=== PATIENT | male | born 1970 | race Caucasian/White ===

== ENCOUNTER 2022-09-27 06:01 | Observation (INO) ==
--- NOTE | 2022-09-06 09:09 | PAT Medication Instructions ---
Medication Instructions Date of Service September 06, 2022 Home Medications divalproex 500 mg tablet,extended release 24 hr 500 mg PO UD gabapentin 100 mg capsule 200 mg PO HS mirtazapine 30 mg tablet 30 mg PO HS prazosin 2 mg capsule 4 mg PO HS venlafaxine 150 mg capsule,extended release 24 hr 150 mg PO QAM venlafaxine 75 mg tablet 75 mg PO QAM Continue as directed divalproex 500 mg tablet,extended release 24 hr 500 mg PO UD ASK your prescriber and surgeon mirtazapine 30 mg tablet 30 mg PO HS Take morning of surgery With a small sip of water, OTHERWISE NOTHING TO EAT OR DRINK AFTER MIDNIGHT: venlafaxine 150 mg capsule,extended release 24 hr 150 mg PO QAM venlafaxine 75 mg tablet 75 mg PO QAM Take evening before surgery gabapentin 100 mg capsule 200 mg PO HS prazosin 2 mg capsule 4 mg PO HS Other Notes If you have any questions please call us at [phone] or [phone] or [phone] or [phone]
--- NOTE | 2022-09-13 10:44 | Anesthesiology Consultation ---
Date of Service September 13, 2022 Assessment & Plan (1) Encounter for pre-operative examination: - awaiting upcoming pt reported PCP clearance 09/19/22. Chart Review Chart Review: Pending: Refer to Additional Notes / Consult section and Patient seen in Pre Admission Testing Teaching & Discussion Pre-Anesthesia Teaching/Discussion Notes: Instructed NPO after midnight before surgery, except medications with 15 cc of water. Medication instructions provided according to the PAT guidelines. History Surgery Operation Date: 09/27/22 07:45 Proposed Procedures p C5-C6 Anterior Cervical Discectomy and Fusion, Spinal Cord Monitoring - Trae Mccann DO Height/Weight Height: 5 ft 10 in Weight: 103.3 kg Allergies Allergy/AdvReac Type Severity Reaction Status Date / Time Penicillins Allergy Unknown Verified 09/04/22 16:33 Medications Home Medications Medication Instructions Recorded Confirmed Last Taken divalproex 500 mg tablet,extended 500 mg PO UD 09/04/22 09/04/22 Unknown release 24 hr gabapentin 100 mg capsule 200 mg PO HS 09/04/22 09/04/22 Unknown mirtazapine 30 mg tablet 30 mg PO HS 09/04/22 09/04/22 Unknown prazosin 2 mg capsule 4 mg PO HS 09/04/22 09/04/22 Unknown venlafaxine 150 mg 150 mg PO QAM 09/04/22 09/04/22 Unknown capsule,extended release 24 hr venlafaxine 75 mg tablet 75 mg PO QAM 09/04/22 09/04/22 Unknown Past Medical History Medical History Acid reflux diet controlled History of migraine HLD (hyperlipidemia) PTSD (post-traumatic stress disorder) Spinal stenosis Patient denies h/o stroke, seizures, heart attack, heart failure, DM, HTN, blood clots or blood transfusions. Exercise / Class Metabolic Activity II 4-5 Yardwork/Stairs/Walk up hill (mild SOB with 1 FOS, ongoing x 6 months denies change or worsening; denies chest discomfort) Past Family History Family History Other No family history of adverse response to anesthesia Past Surgical History Surgical History History of colonoscopy History of esophagogastroduodenoscopy (EGD) History of left knee surgery History of tonsillectomy History of wisdom tooth extraction Past Anesthesia History No Hx of Anesthesia Complications and No Family Hx of Anesthesia Complications History of PONV No Hx of PONV and No Hx of Motion Sickness STOP BANG Total 4 Social History Smoking Status: Current every day smoker (-advised, pt inquired about vaping- aware to not vape from midnight before surgery on) tobacco type: cigarettes Smoking cigarettes per day: 10 per day Do You Dip or Chew Tobacco: No Hx Alcohol Use: No Hx Substance Use: No substance use type: does not use Review of Systems Snoring, denies witnessed apneas. Patient denies chest pain, fever, chills, cough, wheezing, or palpitations. Physical Exam Vital Signs Vitals BP 124/85 P 67 TEMP 98.2 SP02 96% on RA RESP 18 Physical Full cervical extension range of motion without pain TMD 3.5 finger breadths Mallampati Score 3 Dentition: intact, denies chipped or loose teeth, caps/crowns, implants or bridges Lungs: normal respiratory effort. Good air movement, clear throughout to auscultation, no adventitious breath sounds Cardiac: regular rate and rhythm, no murmurs noted Carotid arteries: negative bruit bilat Lab Results Anesthesia Preop Results Results Anesthesia Widget: WBC 7.34 K/ul (4.8-10.8) 09/13/22 Hgb 15.6 g/dl (14.0-18.0) 09/13/22 Hct 44.1 % (42.0-52.0) 09/13/22 Plt 306 K/uL (130-400) 09/13/22 Na 136 mmol/L (136-145) 09/13/22 K 4.2 mmol/L (3.5-5.1) 09/13/22 Cl 107 mmol/L (98-107) 09/13/22 CO2 22 mmol/L (21-32) 09/13/22 BUN 16 mg/dl (6-23) 09/13/22 Creat 1.06 mg/dl (0.6-1.4) 09/13/22 Glucose Level 105 mg/dl (70-99(Fasting)) H 09/13/22 PT 10.0 Seconds (9.0-12.0) 09/13/22 PTT 29.3 Seconds (21.0-31.0) 09/13/22 INR 0.9 (0.9-1.1) 09/13/22 Urine Color Yellow 09/13/22 Urine Appearance Clear (Clear) 09/13/22 Urine pH 5.0 (4.5-7.5) 09/13/22 Urine Specific [place] 1.020 (1.000-1.030) 09/13/22 Urine Protein Negative (Negative) 09/13/22 Urine Glucose (UA) Negative (Negative) 09/13/22 Urine Ketones Negative (Negative) 09/13/22 Urine Blood Negative (Negative) 09/13/22 Urine Nitrite Negative (Negative) 09/13/22 Urine Bilirubin Negative (Negative) 09/13/22 Urine Urobilinogen Negative (Negative) 09/13/22 Urine Leukocyte Esterase Negative (Negative) 09/13/22 Blood Type A Positive 09/13/22 Antibody Screen NEGATIVE 09/13/22 Testing Electrocardiogram Date: 09/13/22 Sinus bradycardia, rate 54 bpm Chest X-Ray Date: 09/13/22 No acute chest disease COVID-19 Risk Screen Screening Information COVID-19 Screen Date: 09/13/22 Exposure 21 Days Family/Household +COVID Last 21 Days: No Exposure 10 Days Any COVID Exposure Last 10 Days: No Symptoms Last 10 Days Experienced COVID Sx Last 10 Days: No + COVID 0-90 Days COVID + in Last 0-90 Days: No
[~2022-09-27 06:01] MED LIST: ACETAMINOPHEN 500 MG TAB PO SCH; CLINDAMYCIN/D5W 900 MG/50 ML BAG IV SCH; CeleBREX 200 MG CAP PO SCH; GABAPENTIN 900 MG DOSE PO SCH; LR 15ML/HR IV SCH; LR 60ML/HR IV SCH
[2022-09-27] MEDS ORDERED: LABETALOL HCL IV 5 MG/ML 20ML IV PRN (07:15)
[2022-09-27] MEDS ORDERED: ATROPINE SULFATE 0.1 MG/ML 10ML SYR IV PRN (07:15)
[2022-09-27] MEDS ORDERED: PROMETHAZINE HCL 12.5 MG in SODIUM CHLORIDE 0.9% 50 ML IV PRN ×2 (07:15→10:45)
[2022-09-27] MEDS ORDERED: fentaNYL citrate PF 100 MCG/2 ML VIAL ONE ×2 (07:17→08:23)
[2022-09-27] MEDS ORDERED: MIDAZOLAM HCL 1 MG/ML 2ML VIAL ONE (07:17)
[2022-09-27] MEDS ORDERED: LIDOCAINE 2% 2 ML VIAL/AMP(20MG/ML) INFIL ONE (07:40)
[2022-09-27] MEDS ORDERED: PROPOFOL IV EMULSION 10 MG/ML 20 ML VIAL IV ONE (07:40)
[2022-09-27] MEDS ORDERED: ONDANSETRON INJ 2 MG/ML 2 ML VIAL ONE (07:40)
[2022-09-27] MEDS ORDERED: DEXAMETHASONE SOD INJ 4 MG/ML VIAL ONE (07:40)
--- NOTE | 2022-09-27 07:43 | History & Physical Bridge Note ---
Date of Service September 27, 2022 History & Physical Bridge Note I have examined the patient, reviewed the History & Physical and in the interval since the performance of the History & Physical I have noted the following changes of clinical significance: no changes noted
--- NOTE | 2022-09-27 07:44 | History & Physical Report ---
Date of Service September 27, 2022 Assessment & Plan (1) Cervical stenosis of spinal canal: Plan: C5-C6 anterior cervical discectomy and fusion History of Present Illness Chief Complaint: Neck and arm pain Primary Care Provider: Karson Chan DO This is a 52-year-old male with persistent chronic persistent neck and arm pain and failing course of nonoperative care is here for surgical intervention. Allergies Allergy/AdvReac Type Severity Reaction Status Date / Time Penicillins Allergy Unknown- Verified 09/27/22 06:30 as child Home Medications Medication Instructions Recorded Confirmed Type divalproex 500 mg tablet,extended 500 mg PO UD 09/04/22 09/27/22 History release 24 hr (Depakote ER) gabapentin 100 mg capsule 200 mg PO HS 09/04/22 09/27/22 History mirtazapine 30 mg tablet (Remeron) 30 mg PO HS 09/04/22 09/27/22 History prazosin 2 mg capsule 4 mg PO HS 09/04/22 09/27/22 History venlafaxine 150 mg 150 mg PO QAM 09/04/22 09/27/22 History capsule,extended release 24 hr venlafaxine 75 mg tablet 75 mg PO QAM 09/04/22 09/27/22 History Past Med/Surg History Medical History (Updated 09/27/22 @ 07:44 by Trae Mccann DO) Acid reflux diet controlled History of migraine HLD (hyperlipidemia) Nerve damage Neck, shoulders and arms- bilateral- From EMG in [place] PTSD (post-traumatic stress disorder) Spinal stenosis Surgical History History of colonoscopy History of esophagogastroduodenoscopy (EGD) History of left knee surgery History of tonsillectomy History of wisdom tooth extraction Family History Other No family history of adverse response to anesthesia Social History Smoking Status: Current every day smoker (-advised, pt inquired about vaping- aware to not vape from midnight before surgery on) Cigarettes Per Day: 10 per day; Second Hand Exposure: Yes ( smokes); Do You Dip or Chew Tobacco: No; Tobacco Cessation Education Requested by Patient: No Hx Alcohol Use: No Hx Substance Use: No Preferred Language: [place] Communication Ability: Effective Supervisor Wet End Required: No Beliefs That Will Affect Care: None Current Living Situation: Family Feels Safe at Home: Yes Safety Concerns: Feels Safe At This Time Assistive Devices: Glasses Assistive Devices Comment: glasses for reading Physical Exam Physical Exam: Patient is alert and oriented Heart regular rhythm Lungs clear Results & Data Results & Data Vital Signs (Past 12 Hours) Vital Signs Temp Pulse Resp BP Pulse Ox O2 Del Method 09/27/22 06:35 36.6 C 77 20 142/90 H 97 Room Air
[2022-09-27] MEDS ORDERED: ROCURONIUM BROMIDE 10 MG/ML 5 ML VIAL IV ONE ×2 (08:26→08:27)
[2022-09-27] MEDS ORDERED: FLOSEAL HEMOSTATIC MATRIX 10ML TOP ONE (08:33)
[2022-09-27] MEDS ORDERED: SUGAMMADEX SODIUM 200 MG/2 ML VIAL IV ONE (08:49)
[2022-09-27] MEDS ORDERED: PHENYLEPHRINE HCL 10 MG/ML VIAL ONE (08:51)
[2022-09-27] MEDS ORDERED: ePHEDrine sulfate 50 MG/ML SYR ONE (08:51)
--- NOTE | 2022-09-27 08:59 | Operative Report ---
Post Operative Report Pre & Post Diagnosis Operation Date: 09/27/22 07:45 Pre-Op Diagnosis: Cervical spinal stenosis with radiculopathy Post-Op Diagnosis: Same I identified the patient and participated in the time-out.: Yes Procedure Operation Date: 09/27/22 07:45 Actual Procedures 1. Anterior cervical discectomy with bilateral foraminotomies C5-C6. #2 anterior cervical arthrodesis C5-C6. #3 placement of Spira 8 mm cage with I factor C5-C6. #4 placement of K2 M plate and screws across C5-C6. Surgeon Trae Mccann, Vp [employer] Leesa Haynes Estimated Blood Loss 20 Findings Consistent with Post-Op Diagnosis Specimens none Indications This is a 52-year-old male presents above-mentioned diagnosis after failing course of nonoperative care is here for surgical intervention. Description of Procedure Patient was met with identified informed consent obtained. Patient was then taken to the operative suite underwent a patient placed in spine position jacks table with head Rock head order. All bony promises well-padded eyes inspected to ensure no external pressure placed upon them. This point the anterior cervical spine was prepped and draped in a sterile fashion. With assistance of fluoroscopy identified the anterior cervical spine at C5-C6 and a transverse incision was placed along the right anterior aspect of the cervical spine overlying this region. Blunt dissection with assistance of bipolar electrocautery to form down to and exposing the anterior cervical spine C5-C6. A complete discectomy was then performed out to the uncovertebral joints bilaterally. [place] distracting pins utilized to assist in visualization. Removed all posterior and the fibers longitudinal ligament bilateral foraminotomies performed. Endplates burred to subcortical bleeding bone and a 8 mm Spira cage with I factor tapped in position. Distracting apparatus was kayce mercedes and a K2 M plate and screws applied with the assistance of fluoroscopy. The incision was then copiously irrigated explored to ensure no tenderness or surrounding structures or remaining bleeding. 10 round TERRY drain inserted. The incision was then closed with 2 Vicryl in a fashion of 4 Monocryl for final skin closure. Steri-Strips sterile dressing placed. Patient waken taken to PACU in stable condition. Please note spinal cord monitoring visualized at the procedure no changes noted. Lastly Leesa Haynes was present at the entire surgeon while the patient positioning complex portion of the surgery and final skin closure. I attest to the content of the Intraoperative Record and any orders documented therein. Any exceptions are noted below.
--- NOTE | 2022-09-27 09:29 | Fluoroscopy Report ---
FL cervical 2-3V CLINICAL HISTORY: ACDF C5-C6 COMPARISON STUDY: None FLUOROSCOPY TIME: 6.1 seconds FLUOROSCOPY IMAGES: 2 EXPOSURE DOSE: 0.66 mGy FINDINGS: Endotracheal tube is present. Anterior plate and screw fusion hardware is noted at what zenaida ears to be the C5-C6 interspace. The visualized hardware appears intact. A radiopaque surgical sponge projects over the anterior operative bed. A surgical drainage catheter is in place. Note that the im ages were submitted following completion of the surgery. IMPRESSION: Fluoroscopic assistance as above. ACT 112: Negative or not required by law. Electronically signed by: Yusuf Rivers M.D. 09/27/2022 9:28 AM
[2022-09-27] MEDS: HYDROmorphone INJ 1 MG/ML SYRINGE IV PRN ×2 (10:07→10:12)
--- NOTE | 2022-09-27 10:21 | Anesthesiology Progress Note ---
Date of Service September 27, 2022 Anesthesia Post Procedure Vital Signs Vital Signs: Temp Pulse Pulse Resp BP Pulse Ox O2 Del Method 09/27/22 10:05 73 18 148/99 H 97 Nasal Cannula 09/27/22 09:55 77 20 143/82 H 95 Nasal Cannula 09/27/22 09:35 88 10 L 133/90 99 Oxymask 09/27/22 09:45 36.4 C L 70 11 L 134/89 96 Nasal Cannula 09/27/22 09:25 71 13 131/90 97 Oxymask 09/27/22 09:15 36.0 C L 74 16 131/81 99 Oxymask 09/27/22 06:35 36.6 C 77 20 142/90 H 97 Room Air O2 Flow Rate 09/27/22 10:05 3 09/27/22 09:55 3 09/27/22 09:35 5 09/27/22 09:45 3 09/27/22 09:25 7 09/27/22 09:15 9 09/27/22 06:35 Pain Intensity Neck: Pain Intensity: 0 Right Shoulder: Pain Intensity: 5 Transfer of Care Handoff Completed per policy Notes Mental Status: alert / awake / arousable Patient Amnestic to Procedure: Yes Nausea / Vomiting: adequately controlled Pain: adequately controlled Airway Patency, RR, SpO2: stable & adequate BP & HR: stable & adequate Hydration State: stable & adequate Anesthetic Complications: no major complications apparent
[2022-09-27] MEDS ORDERED: RACEPINEPHRINE 2.25% NEBU SOLN 0.5 ML VIAL INH PRN (10:45)
[2022-09-27] MEDS ORDERED: ACETAMINOPHEN 1,000 MG/100 ML VIAL IV PRN (10:45)
[2022-09-27] MEDS ORDERED: FAMOTIDINE 20 MG TAB PO PRN (10:45)
[2022-09-27] MEDS ORDERED: diphenhydrAMINE Capsule 25 MG CAP PO PRN (10:45)
[2022-09-27] MEDS ORDERED: NALOXONE HCL 0.4 MG/1 ML VIAL/CARP IV PRN (10:45)
[2022-09-27] MEDS ORDERED: DO NOT ADMINISTER PNEUMOCOCCAL VACCINE PRN (10:45)
[2022-09-27] MEDS ORDERED: ONDANSETRON INJ 2 MG/ML 2 ML VIAL IV PRN (10:45)
[2022-09-27] MEDS ORDERED: METOCLOPRAMIDE HCL INJ 5 MG/ML 2 ML VIAL IV PRN (10:45)
[2022-09-27] MEDS ORDERED: HYDROmorphone INJ 0.5 MG/0.5 ML SYR IV PRN (10:45)
[2022-09-27] MEDS ORDERED: dexAMETHasone 8 MG in SYRINGE 0 ML IV PRN (10:45)
[2022-09-27] MEDS ORDERED: ONDANSETRON 4 MG OD TAB PO PRN (10:45)
[2022-09-27] MEDS ORDERED: bisacodyL 10 MG SUPP PR PRN (10:45)
[2022-09-27] MEDS ORDERED: ALUMINUM/MAGNESIUM SUSP 30 ML UDC PO PRN (10:45)
[2022-09-27] MEDS ORDERED: LORazepam 0.5 MG TAB PO PRN (10:45)
[2022-09-27] MEDS ORDERED: MAGNESIUM HYDROXIDE SUSP 30 ML UDC PO PRN (10:45)
[2022-09-27] MEDS ORDERED: hydrOXYzine HCl 25 MG TAB PO PRN (10:45)
[2022-09-27] MEDS ORDERED: DO NOT ADMINISTER FLU VACCINE PRN (10:45)
[2022-09-27] MEDS ORDERED: HYDROmorphone INJ 1 MG/ML SYRINGE IV PRN (10:45)
[2022-09-27] MEDS ORDERED: LORazepam 2 MG/1 ML VIAL IV PRN (10:45)
[2022-09-27] MEDS ORDERED: SOD PHOSPHATE/SOD BIPHOSPHATE ENEMA 132 ML BTL PR PRN (10:45)
[2022-09-27] MEDS ORDERED: ACETAMINOPHEN 500 MG TAB PO PRN (10:45)
[2022-09-27] MEDS ORDERED: traMADol HCL 50 MG TABLET PO PRN (10:45)
[2022-09-27] MEDS: LACTATED RINGER'S 1,000 ML IV SCH ×2 (11:16→20:08)
--- NOTE | 2022-09-27 11:23 | Consultation ---
Date of Consultation September 27, 2022 Assessment & Plan (1) Cervical stenosis of spinal canal: (2) PTSD (post-traumatic stress disorder): (3) HTN (hypertension): (4) Tobacco use: Plan 52-year-old male that presented to the [facility] today for an elective ACDF C5-C6 under the care of Dr. Mccann after failed conservative management of persistent neck and arm pain. Additional past medical history includes: HTN (Takes Prazosin), PTSD (takes Venlafaxine and Depakote), and tobacco use. Post- operatively, patient doing well with C-Collar intact; TERRY drain x1 with scant daly red bloody output. His baseline Hgb from 09/13/22 was 15.6; no signs of overt bleeding; will trend this in the AM. Patient able to answer all questions appropriately. SpO2 95% on RA and denies SOB, chest pain, dizziness, headaches, abdominal pain or tenderness, N/V/D. He does have pain in his right arm but denies neuropathy and is able to move all fingers and upper and lower extremities. Cervical stenosis of spinal canal: POD# 0 s/p ACDF C5-C6 with Dr. Mccann. EBL 20mL; TERRY drain x1 with scant daly red blood Monitor H&H, pre op Hgb from 09/13 15.6; trend in AM Per ortho for pain control, wound care, anticoagulation and activities. Continue incentive spirometry PT/OT when appropriate PTSD: Takes Venlafaxine and Depakote; continue Has been well controlled for a few years with medications; no visual or auditory hallucinations recently HTN: Takes Prazosin; continue Normotensive postop Tobacco Use: Smokes approximately 10 cigarettes/day Offered nicotine patch; declined Disposition: PCP: Dr. Chan Code Status: Full Code VTE Prophylaxis: Per admitting team I spent a total of 60 minutes coordinating, documenting, and providing care for this patient excluding time spent in the performance of separately billed services. All of the aforementioned completed while collaborating with the assigned attending physician for a full treatment plan. Please see their addendum for further details. Supervising Physician Co-Signing Physician Notes Attending addendum: The patient was seen and examined in medical floor He is a status post ACDF C5-C6 on 09/27/2022 He has some pain involving the right upper extremity and localized tenderness in the neck but no other symptoms On examination Lying in bed comfortably Remains hemodynamically stable Chestclear to auscultate bilaterally HeartS1-S2, regular Abdomenbenign Extremitiesno edema His labs, imaging studies and EKG reviewed Status post ACDF C5-C6 for cervical stenosis Remains medically stable Agree with assessment plan as outlined above by Varsha Garnett History of Present Illness Requesting Physician: Dr. Mccann Reason for Consultation: Postoperative medical management Attending Physician: Trae Mccann, DO History of Present Illness Mr. Thomas is a 52-year-old male that presented to the [facility] today for an elective ACDF C5-C6 under the care of Dr. Mccann after failed conservative management of persistent neck and arm pain. Post-operatively, patient doing well with C-Collar intact; TERRY drain x1 with scant daly red bloody output. His baseline Hgb from 09/13/22 was 15.6; no signs of overt bleeding; will trend this in the AM. Patient able to answer all questions appropriately. SpO2 95% on RA and denies SOB, chest pain, dizziness, headaches, abdominal pain or tenderness, N/V/D. He does have pain in his right arm but denies neuropathy and is able to move all fingers and upper and lower extremities. Pt has not had flatulence yet; is ordered stool softeners as well while taking opioids for PRN pain control. Additional past medical history includes: HTN (Takes Prazosin), PTSD (takes Velafaxine and Depakote), and tobacco use. Pt described being in [place] and having nightmares with visual and auditory hallucinations in his past related to his experiences. [facility] and claims his symptoms are well controlled with Venlafaxine and Depakote. He takes Remeron for sleep aid as well related to his PTSD. Patient smokes approximately 10 cigarettes per day; no alcohol or recreational drug use; including marijuana. [facility] hospitalist service was consulted for postoperative medical management. Please see A/P for further details. We are available 25/09 via [place] text for additional assistance or management. Allergies Allergy/AdvReac Type Severity Reaction Status Date / Time Penicillins Allergy Unknown- Verified 09/27/22 06:30 as child Home Medications Medication Instructions Recorded Confirmed Type divalproex 500 mg tablet,extended 500 mg PO UD 09/04/22 09/27/22 History release 24 hr (Depakote ER) gabapentin 100 mg capsule 200 mg PO HS 09/04/22 09/27/22 History mirtazapine 30 mg tablet (Remeron) 30 mg PO HS 09/04/22 09/27/22 History prazosin 2 mg capsule 4 mg PO HS 09/04/22 09/27/22 History venlafaxine 150 mg 150 mg PO QAM 09/04/22 09/27/22 History capsule,extended release 24 hr venlafaxine 75 mg tablet 75 mg PO QAM 09/04/22 09/27/22 History oxycodone 5 mg tablet 5 mg PO Q6H PRN pain #30 tabs 09/27/22 Rx tramadol 50 mg tablet 50 mg PO Q6H PRN pain, moderate 09/27/22 Rx #30 tabs Patient History Medical History Acid reflux diet controlled History of migraine HLD (hyperlipidemia) HTN (hypertension) Nerve damage Neck, shoulders and arms- bilateral- From EMG in [place] PTSD (post-traumatic stress disorder) Spinal stenosis Tobacco use Surgical History History of colonoscopy History of esophagogastroduodenoscopy (EGD) History of left knee surgery History of tonsillectomy History of wisdom tooth extraction Family History Other No family history of adverse response to anesthesia Social History Smoking Status: Current every day smoker (-advised, pt inquired about vaping- aware to not vape from midnight before surgery on) Cigarettes Per Day: 10 per day; Second Hand Exposure: Yes ( smokes); Do You Dip or Chew Tobacco: No; Tobacco Cessation Education Requested by Patient: No Hx Alcohol Use: No Hx Substance Use: No Preferred Language: Ch[place] Communication Ability: Effective Pelletizer Required: No Beliefs That Will Affect Care: None Current Living Situation: Family Feels Safe at Home: Yes Safety Concerns: Feels Safe At This Time Assistive Devices: Glasses Assistive Devices Comment: glasses for reading Review of Systems Review of Systems: Neuro: (-) Falls, trauma, slurred speech HEENT: (-) HEATH, dizziness, dysphagia, visual or auditory changes (+) pain in right arm CV: (-) CP, palpitations, swelling Resp: (-) SOB GI: (-) appetite changes, N/V/D, bowel changes : (-) urinary changes Skin: (-) rashes Psych: (-) anxiety, depression Physical Exam Physical Exam: Neuro: AAOx4, PERRLA, no aphagia, memory changes, CNII-XII grossly intact HEENT: head normocephalic, moist mucus membranes CV: S1/S2, (-) M/G/R, (-) edema, cap refill < 3 seconds. Anterior TERRY drain x1 with scant daly red bloody drainage Resp: Lungs CTA in all [place]. On RA GI: Abdomen S/NT/ND, Ax4 bowel sounds, (-) CVA tenderness Musculoskeletal: 5/5 B/L UE strength, 5/5 B/L LE strength. No gait disturbance Skin: (-) rashes , (-) erythema. Psych: euthymic mood Results & Data Vital Signs (Past 12 Hours) Vital Signs Temp Pulse Pulse Resp BP Pulse Ox Pulse Ox 09/27/22 10:40 09/27/22 10:40 36.7 C 74 16 136/88 96 09/27/22 10:40 96 09/27/22 10:25 36.4 C L 79 17 138/91 96 09/27/22 10:15 36.4 C L 67 18 136/94 96 09/27/22 10:05 73 18 148/99 H 97 09/27/22 09:55 77 20 143/82 H 95 09/27/22 09:35 88 10 L 133/90 99 09/27/22 09:45 36.4 C L 70 11 L 134/89 96 09/27/22 09:25 71 13 131/90 97 09/27/22 09:15 36.0 C L 74 16 131/81 99 09/27/22 06:35 36.6 C 77 20 142/90 H 97 O2 Del Method O2 Del Method O2 Flow Rate O2 Flow Rate 09/27/22 10:40 Nasal Cannula 2 09/27/22 10:40 Nasal Cannula 2 09/27/22 10:40 Nasal Cannula 2 09/27/22 10:25 Nasal Cannula 3 09/27/22 10:15 Nasal Cannula 3 09/27/22 10:05 Nasal Cannula 3 09/27/22 09:55 Nasal Cannula 3 09/27/22 09:35 Oxymask 5 09/27/22 09:45 Nasal Cannula 3 09/27/22 09:25 Oxymask 7 09/27/22 09:15 Oxymask 9 09/27/22 06:35 Room Air Diagnostic Findings Cervical Spine X-Ray 09/27/22 07:45 FL cervical 2-3V CLINICAL HISTORY: ACDF C5-C6 COMPARISON STUDY: None FLUOROSCOPY TIME: 6.1 seconds FLUOROSCOPY IMAGES: 2 EXPOSURE DOSE: 0.66 mGy FINDINGS: Endotracheal tube is present. Anterior plate and screw fusion hardware is noted at what appears to be the C5-C6 interspace. The visualized hardware appears intact. A radiopaque surgical sponge projects over the anterior operative bed. A surgical drainage catheter is in place. Note that the images were submitted following completion of the surgery. IMPRESSION: Fluoroscopic assistance as above. ACT 112: Negative or not required by law. Electronically signed by: Yusuf Rivers M.D. 09/27/2022 9:28 AM
[2022-09-27] MEDS: oxyCODONE HCL IR 5 MG TAB (IMMEDIATE RELEASE) PO PRN ×4 (11:45→20:24)
[2022-09-27] MEDS: VENLAFAXINE HCL XR 150 MG CAPXR PO SCH (12:03)
[2022-09-27] MEDS: DIVALPROEX EXTENDED RELEASE 500 MG TAB PO SCH (12:05)
[2022-09-27] MEDS: dexAMETHasone 6 MG in SYRINGE 0 ML IV SCH (12:13)
[2022-09-27] MEDS: VENLAFAXINE HCL XR 75 MG CAPXR PO SCH (12:25)
[2022-09-27] MEDS: CLINDAMYCIN/D5W 600 MG/50 ML BAG IV SCH ×2 (15:04→23:03)
[2022-09-27] MEDS: NICOTINE 14 MG/24 HR PATCH TD SCH (16:54)
[2022-09-27] MEDS ORDERED: PRAZOSIN HCL 1 MG CAP PO SCH (21:00)
[2022-09-27] MEDS ORDERED: DIVALPROEX EXTENDED RELEASE 500 MG TAB PO SCH (21:00)
[2022-09-27] MEDS ORDERED: MIRTAZAPINE TAB 15 MG TAB PO SCH (21:00)
[2022-09-27] MEDS ORDERED: GABAPENTIN 100 MG CAP PO SCH (21:00)
[2022-09-27] MEDS ORDERED: DOCUSATE SODIUM/SENNA 50/8.6MG TAB PO SCH (21:00)
[2022-09-28] MEDS: oxyCODONE HCL IR 5 MG TAB (IMMEDIATE RELEASE) PO PRN ×2 (05:13→10:13)
[2022-09-28] MEDS ORDERED: POLYETHYLENE (MIRALAX) 17 GM PACK PO SCH (06:00)
[2022-09-28 07:12] LABS: Hematocrit (blood only) 40.3 % (42.0-52.0); Mean Corpuscular Hemoglobin 30.4 pg (25.0-34.0); Mean Corpuscular Hgb Conc 34.7 g/dL (32.0-36.0); Mean Corpuscular Volume 87.6 fL (80.0-100.0); Mean Platelet Volume 9.1 fL (9.4-12.4); Platelet Count 241 K/uL (130-400); RDW Coefficient of Variation 12.4 % (11.5-14.5); RDW Standard Deviation 39.7 fL (36.4-46.3); White Blood Count 13.06 K/ul (4.8-10.8)
[2022-09-28 07:25] LABS: BUN Creatinine Ratio 13.5 (10-20); Calcium 8.9 mg/dl (8.6-10.3); Creatinine Clr Calc Pharmacy 116.9 ml/min; Est GFR (African American) 113.9 ml/min; Est GFR (Non-African American) 98.3 ml/min; Potassium 4.2 mmol/L (3.5-5.1)
[2022-09-28] MEDS: dexAMETHasone 6 MG in SYRINGE 0 ML IV SCH (07:38)
[2022-09-28] MEDS: VENLAFAXINE HCL XR 150 MG CAPXR PO SCH (08:30)
[2022-09-28] MEDS: VENLAFAXINE HCL XR 75 MG CAPXR PO SCH (08:31)
[2022-09-28] MEDS: DIVALPROEX EXTENDED RELEASE 500 MG TAB PO SCH (08:31)
[2022-09-28] MEDS: NICOTINE 14 MG/24 HR PATCH TD SCH (08:32)
[2022-09-28] MEDS ORDERED: dexAMETHasone 8 MG in SYRINGE 0 ML IV SCH (09:00)
--- NOTE | 2022-09-28 10:14 | Discharge Summary ---
Date of Service September 28, 2022 Admission HPI Per Admitting Provider This is a 52-year-old male with persistent chronic persistent neck and arm pain and failing course of nonoperative care is here for surgical intervention. Principal Diagnosis Cervical spinal stenosis with radiculopathy Discharge Data Allergies Allergy/AdvReac Type Severity Reaction Status Date / Time Penicillins Allergy Unknown- Verified 09/27/22 06:30 as child Consultations 09/27/22 10:45 Consult Hospitalist Routine Procedures Performed Operation Date: 09/27/22 07:45 Actual Procedures p C5-C6 Anterior Cervical Discectomy and Fusion, Spinal Cord Monitoring(Not Applicable) - Trae Mccann DO Ordered Studies 09/27/22 07:45 FL cervical 2-3V Routine Hospital Course (1) Cervical stenosis of spinal canal: Patient went anterior cervical discectomy and fusion tolerated this well was taken to the orthopedic floor postoperative. Postop day 1 he was swallowing well. No hoarseness. Excellent strength testing. TERRY drain decreasing probably. Subsidy discharged home. Discharge orders instructions found in chart for further review. Total Time Total Time Spent Total Time Spent (In Minutes): 20 minutes Discharge Plan Discharge Items Patient Disposition: Home - Self-Care Reason For Visit: Spinal Stenosis, Cervical Region Discharge Diagnosis: Cervical stenosis with radiculopathy Activity: As commented below Non-emergency contact: Primary Care Provider Call non-emergency contact if: you have any medication questions Follow-up/Referrals: Karson Chan DO [Primary Care Provider] - Diet: Regular Addtl Attending Provider Instructions: ACTIVITY RECOMMENDATIONS: SELF CARE INSTRUCTIONS AFTER CERVICAL FUSIONS 1. No smoking. Smoking drastically decreases the chance of a solid fusion. 2. No bending, lifting more than 5 pounds, or twisting (roll like a log when turning in bed). 3. You may shower 3 days after surgery. Thoroughly dry wound. Do not soak in the tub. 4. Cervical collar: Must be worn at all times including sleeping. You may remove the brace only to bath, eat and if you are sitting in a recliner. 5. Please walk as much as you can for exercise. Gradually increase the distance that you walk as your endurance increases. SPECIAL CARE INSTRUCTIONS: VERY IMPORTANT TO READ AND REVIEW A. Do not take any anti-inflammatory medications (i.e. Indocin, Advil, Aspirin, Naprosyn, Aleve, Motrin, etc.) as these may inhibit the chance of a solid fusion. Tylenol is okay to take. B. Your surgical incision has been closed with a cosmetic suture under the skin that will dissolve in about 6 weeks. In 14 days, you can use a pair of clean scissors and cut the suture that is left outside of the skin at the ends of your incision. C. Complications are uncommon, but please contact us if you have any signs or symptoms of: 1. wound infection (fever higher than 102.5 degrees F, redness, separation of wound, drainage, or increasing pain from the incision) 2. blood clots in legs (pain, swelling, redness and warmth in legs) 3. urinary tract infection (fever higher than 102.5 degrees, burning upon urination or increased frequency of urination) 4. nerve problems (inability to walk on your toes or heels, numbness, loss of bowel or bladder control) 5. any other symptoms that concern you. D. Please call the office at if you have any concerns or questions about your operation or recovery. MANAGING PAIN AFTER SPINAL SURGERY 1. Narcotic medication is intended for short-term use and will be provided for surgical pain. Surgical pain usually lasts for a period of 4-6 weeks. Narcotic medication includes Percocet, Vicodin, Darvocet, Tylenol #3 or Lortab. 2. Longer-term pain is more appropriately treated with non-narcotic medication such as Tylenol ES. 3. Muscle spasm is not appropriately treated with narcotics. Muscle relaxers such as Soma, Flexeril or Skelaxin can be used along with Tylenol ES. 4. Remember that we all live with some "aches and pains". This is not unusual or uncommon after an injury or as we get older. 5. We will provide appropriate medication within the normal guidelines of their prescribed use. We will also be very cautious and aware of potential abuse and extended duration of patients' medication needs. 6. Please allow 2-3 days to process refills. Prescriptions will not be mailed but must be picked up at the office. FOLLOW UP VISIT: Keep your scheduled follow-up appointment. Any questions, please call the office at . Pending Studies at Discharge: No Stand-Alone Forms: On-Q-ity, Smoking Cessation Medications and DC Order Prescriptions: New tramadol 50 mg tablet 50 mg PO Q6H PRN (Reason: pain, moderate) Qty: 30 0RF oxycodone 5 mg tablet 5 mg PO Q6H PRN (Reason: pain) Qty: 30 0RF Continued venlafaxine 75 mg Tablet 75 mg PO QAM venlafaxine 150 mg Capsule,Extended Release 24hr 150 mg PO QAM mirtazapine [Remeron] 30 mg Tablet 30 mg PO HS divalproex [Depakote ER] 500 mg Tablet Extended Release 24 Hr 500 mg PO UD gabapentin 100 mg Capsule 200 mg PO HS prazosin 2 mg Capsule 4 mg PO HS Discharge Orders: Discharge Order (Routine); Ordered 09/28/22 Ordered By: Trae Mccann Admission Data Admit Date/Time: 09/27/22 09:02 Attending Provider: Trae Mccann Admit Provider: Trae Mccann Primary Care Provider: Karson Chan Other Providers: Osvaldo Garnett ; Deisi Phillips
--- NOTE | 2022-09-28 12:33 | Hospitalist Progress Note ---
Date of Service September 28, 2022 Assessment & Plan (1) Cervical stenosis of spinal canal: (2) PTSD (post-traumatic stress disorder): (3) HTN (hypertension): (4) Tobacco use: Plan 52-year-old male that presented to the [facility] today for an elective ACDF C5-C6 under the care of Dr. Mccann after failed conservative management of persistent neck and arm pain. Additional past medical history includes: HTN (Takes Prazosin), PTSD (takes Venlafaxine and Depakote), and tobacco use. Post- operatively, patient doing well with C-Collar intact; TERRY drain x1 with scant daly red bloody output. His baseline Hgb from 09/13/22 was 15.6; no signs of overt bleeding; will trend this in the AM. Patient able to answer all questions appropriately. SpO2 95% on RA and denies SOB, chest pain, dizziness, headaches, abdominal pain or tenderness, N/V/D. He does have pain in his right arm but d enies neuropathy and is able to move all fingers and upper and lower extremities. Cervical stenosis of spinal canal: POD# 1 s/p ACDF C5-C6 with Dr. Mccann. EBL 20mL; TERRY drain x1 with scant serosanguineous collection Monitor H&H, pre op Hgb from 09/13 15.6; trend in AM Per ortho for pain control, wound care, anticoagulation and activities. Continue incentive spirometry PT/OT as appropriate PTSD: Takes Venlafaxine and Depakote; continue Has been well controlled for a few years with medications; no visual or auditory hallucinations recently HTN: Takes Prazosin; continue Normotensive postop Tobacco Use: Smokes approximately 10 cigarettes/day Offered nicotine patch; declined Disposition: PCP: Dr. Chan Code Status: Full Code VTE Prophylaxis: Per admitting team likely dc today. Admission and Anticipated Discharge Date Admission Date: September 27, 2022 Subjective Patient seen and examined at bedside for follow-up of medical management for status post C5-C6 anterior cervical discectomy and fusion. Patient was sitting up in chair, cervical collar in situ, reports pain under control, 3/5, reports eating okay and moving gas, denies any other ROS. Physical Exam Physical Exam: Neuro: AAOx4, PERRLA, no aphagia, memory changes, CNII-XII grossly intact HEENT: head normocephalic, moist mucus membranes CV: S1/S2, (-) M/G/R, (-) edema, cap refill < 3 seconds. Anterior TERRY drain x1 with scant daly red bloody drainage. Cervical collar +. Resp: Lungs CTA in all cab[place]. On RA GI: Abdomen S/NT/ND, Ax4 bowel sounds, (-) CVA tenderness Musculoskeletal: 5/5 B/L UE strength, 5/5 B/L LE strength. No gait disturbance Skin: (-) rashes , (-) erythema. Psych: euthymic mood Results & Data Results & Data Vital Signs (Past 12 Hours) Vital Signs Temp Pulse Resp BP Pulse Ox O2 Del Method O2 Flow Rate 09/28/22 11:04 37.2 C 83 22 127/71 94 Room Air 09/28/22 09:10 36.7 C 82 18 103/63 93 Room Air 09/28/22 07:28 72 16 94 Nasal Cannula 1 09/28/22 07:06 36.7 C 76 113/70 92 Room Air 09/28/22 05:20 80 17 92 Room Air 09/28/22 05:36 36.6 C 71 18 115/73 93 Room Air 09/28/22 02:56 36.6 C 78 16 110/71 95 Nasal Cannula 2 09/28/22 00:57 37.1 C 67 16 125/72 94 Nasal Cannula 2
== END 2022-09-28 12:01 | disposition home or self-care (01) ==
LOC: ASU 06:01 → 3E 06:01